=== PATIENT | female | born 1945 | race Caucasian/White ===

== ENCOUNTER → 2022-09-14 10:01 | Outpatient (CLI) | payer MEDICARE, OTHER, SELFPAY ==
--- NOTE | 2022-09-14 10:03 | CA_ITS ---
FINAL REPORT TECHNIQUE: Color Doppler, duplex Doppler and morgan scale sonography of the bilateral neck arterial vasculature was performed. Velocities were measured in the carotid arteries. Stenosis evaluation based on the validated velocity criteria. CLINICAL HISTORY: right bruit, exsmoker, HTN FINDINGS: The peak systolic velocity of the right common carotid artery is 147 cm/s. The peak systolic velocity of the right internal carotid artery is 138 cm/s and end diastolic velocity 32 cm/s. The ICA/CCA ratio is 0.94. A moderate amount of plaque is present at the carotid bifurcation. The right external carotid artery is patent. The right vertebral artery is patent with antegrade flow. The peak systolic velocity of the left common carotid artery is 90 cm/s. The peak systolic velocity of the left internal carotid artery is 93 cm/s and end diastolic velocity 23 cm/s. The ICA/CCA ratio is 1.0. A moderate amount of plaque is present at the carotid bifurcation. There is a moderate amount of plaque at the proximal left common carotid artery. The left external carotid artery is patent.The left vertebral artery is patent with antegrade flow. IMPRESSION: No elevated velocity. Moderate plaque in the proximal left common carotid artery and moderate plaque at the carotid bifurcation bilaterally. Bilateral patent vertebral arteries with antegrade flow. If indicated, CTA or MRA could further evaluate. Reviewed, Interpreted and Dictated by Esteban Washburn MD Transcribed by Hayley Galdamez Authenticated and [facility]
== END ==
PROVIDERS: PCP Family Medicine; Visit Provider Nurse Practitioner Family
DX: R09.89 Other specified symptoms and signs involving the circulatory and respiratory systems (principal)
CPT/HCPCS: 93880

== ENCOUNTER → 2023-02-14 17:21 | Outpatient (CLI) | payer MEDICARE, OTHER, SELFPAY | PROVIDERS: PCP Family Medicine; Visit Provider Family Medicine | DX: R05.9 Cough, unspecified (principal) | CPT/HCPCS: C9803; U0003; U0005 ==

== ENCOUNTER → 2023-05-16 23:24 | Outpatient (CLI) | payer MEDICARE, OTHER, SELFPAY ==
[2023-05-16 17:01] LABS: Basophils # 0.1 K/mm3 (0-0.2); Eosinophils # 0.2 K/mm3 (0.0-0.4); Eosinophils % 2.9 % (0.1-12.0); Hematocrit 47.9 % (37.0-47.0); Hemoglobin 15.1 g/dL (12.2-16.2); Lymphocytes % 28.4 % (10-50); Mean Corpuscular HGB Conc 31.6 g/dL (31.8-35.4); Mean Corpuscular Hemoglobin 30.5 pg (27.0-31.2); Mean Corpuscular Volume 96.6 fl (81-99); Monocytes # 0.4 K/mm3 (0.1-1.0); Monocytes % 5.2 % (1.7-9.3); Neutrophils # 4.4 K/mm3 (1.8-7.8); Neutrophils % 62.5 % (37.0-80.0); Platelet Count 224 K/mm3 (142-424); Red Blood Count 4.96 M/mm3 (4.20-5.40)
[2023-05-16 17:56] LABS: Alanine Aminotransferase 30 U/L (12-78); Albumin Level 4.7 g/dl (3.5-5.0); Alkaline Phosphatase 159 U/L (38-126); Anion Gap 13.3 mEq/L (5-15); Aspartate Amino Transferase 37 U/L (14-36); Bilirubin,Total 0.7 mg/dl (0.2-1.3); Blood Urea Nitrogen 16 mg/dl (7-17); Calcium 9.9 mg/dl (8.4-10.2); Carbon Dioxide 27 mmol/L (22.0-30.0); Chloride 105 mmol/L (98-107); Estimated Glomerular Filt Rate 60 ml/min (>60); GFR (African American) 73 ML/MIN (>60); Globulin 2.4 g/dL (1.3-3.2); Glucose 97 mg/dl (74-100); Potassium 4.3 mmoL/L (3.5-5.1); Sodium 141 mmol/L (136-145); Total Protein,Serum 7.1 g/dl (6.3-8.2)
[2023-05-16 18:11] LABS: T4 (Thyroxine) 8.1 ug/dl (5.53-11.0)
[2023-05-16 18:24] LABS: Thyroid Stimulating Hormone 1.51 uIU/mL (0.465-4.68)
== END ==
PROVIDERS: PCP Family Medicine; Visit Provider Family Medicine
DX: I10 Essential (primary) hypertension (principal); M79.606 Pain in leg, unspecified; Z79.899 Other long term (current) drug therapy
CPT/HCPCS: 80053; 84436; 84443; 85025

== ENCOUNTER → 2023-05-25 14:34 | Outpatient (CLI) | payer MEDICARE, OTHER, SELFPAY ==
--- NOTE | 2023-05-25 14:47 | US_ITS ---
FINAL REPORT TECHNIQUE: Sonographic images of the thyroid gland were obtained in the longitudinal and transverse planes. CLINICAL HISTORY: thyroid nodule FINDINGS: The right lobe measures 1.7 x 4.6 x 1.0 cm. There are several nodules mixed cystic and solid measuring up to 1.5 cm. There is an isoechoic, 8 mm nodule and several smaller nodules. The left lobe measures 1.3 x 4.0 x 0.8 cm. There are several tiny colloid cysts. No solid nodule is identified. The isthmus measures 3 mm. This is normal. IMPRESSION: Several TI-RADS 3 nodules. Recommend follow-up. Reviewed, Interpreted and Dictated by Wendy Hughes MD Transcribed by Nae Nam Authenticated and [facility] [place] [place]
== END ==
PROVIDERS: PCP Family Medicine; Visit Provider Family Medicine
DX: E04.1 Nontoxic single thyroid nodule (principal)
CPT/HCPCS: 76536

== ENCOUNTER 2023-12-21 20:13 | Outpatient (CLI) | payer MEDICARE, OTHER, SELFPAY ==
[2023-12-21 16:49] LABS: Basophils # 0.1 K/mm3 (0-0.2); Basophils % 0.9 % (0.1-2.0); Eosinophils # 0.2 K/mm3 (0.0-0.4); Eosinophils % 2.4 % (0.1-12.0); Hematocrit 44.7 % (37.0-47.0); Hemoglobin 15.2 g/dL (12.2-16.2); Lymphocytes # 1.8 K/mm3 (0.7-4.5); Lymphocytes % 27.8 % (10-50); Mean Corpuscular Hemoglobin 32.1 pg (27.0-31.2); Mean Corpuscular Volume 94.2 fl (81-99); Mean Platelet Volume 8.2 fl (7.4-10.4); Monocytes # 0.4 K/mm3 (0.1-1.0); Monocytes % 6.7 % (1.7-9.3); Neutrophils % 62.3 % (37.0-80.0); Platelet Count 218 K/mm3 (142-424); Red Blood Count 4.74 M/mm3 (4.20-5.40); Red Cell Distribution Width 13.5 % (11.5-17.5); White Blood Count 6.4 K/mm3 (4.8-10.8)
[2023-12-21 16:58] LABS: Alanine Aminotransferase 21 U/L (12-78); Albumin Level 4.3 g/dl (3.5-5.0); Albumin/Globulin Ratio 1.9 (1.1-1.8); Alkaline Phosphatase 189 U/L (38-126); Anion Gap 11.2 mEq/L (5-15); Aspartate Amino Transferase 29 U/L (14-36); Bilirubin,Total 0.5 mg/dl (0.2-1.3); Blood Urea Nitrogen 18 mg/dl (7-17); Calcium 9.9 mg/dl (8.4-10.2); Carbon Dioxide 31 mmol/L (22.0-30.0); Chloride 103 mmol/L (98-107); Chol/HDL Ratio 2.7 (1-3.5); Cholesterol 157 mg/dl (140-200); Estimated Glomerular Filt Rate 60 ml/min (>60); GFR (African American) 73 ML/MIN (>60); Globulin 2.3 g/dL (1.3-3.2); Glucose 100 mg/dl (74-100); HDL Cholesterol 59 mg/dl (40-60); Potassium 4.2 mmoL/L (3.5-5.1); Sodium 141 mmol/L (136-145); Total Protein,Serum 6.6 g/dl (6.3-8.2); Triglycerides 104 mg/dl (30-150); VLDL Cholesterol 21 mg/dL (0-40)
[2023-12-21 17:09] LABS: Direct LDL Cholesterol 72.46 mg/dL (100-129)
[2023-12-21 17:28] LABS: Thyroid Stimulating Hormone 1.34 uIU/mL (0.465-4.68)
== END 2023-12-21 23:59 ==
PROVIDERS: PCP Nurse Practitioner Family; Visit Provider Nurse Practitioner Family
DX: E78.5 Hyperlipidemia, unspecified (principal); I10 Essential (primary) hypertension; Z79.899 Other long term (current) drug therapy
CPT/HCPCS: 80053; 80061; 84443; 85025

== ENCOUNTER 2024-06-05 13:03 | Outpatient (CLI) | payer MEDICARE, OTHER, SELFPAY ==
--- NOTE | 2024-06-05 13:30 | PC.NURSE ---
PT UNABLE TO DO DLCO ON PFT, ATTEMPTED MULTIPLE TIMES
[2024-06-05 14:20] VITALS: PULSE 63
[2024-06-05] MEDS: ALBUTEROL 0.083% 2.5 MG/3 ML NEB IH (14:20)
--- NOTE | 2024-06-05 14:39 | CT_ITS ---
FINAL REPORT TECHNIQUE: Axial images were obtained from the lung apex to the mid abdomen by computed tomography. Coronal reformatted images were obtained. This study was performed with techniques to keep radiation doses as low as reasonably achievable, (ALARA). Individualized dose reduction techniques using automated exposure control or adjustment of mA and/or kV according to the patient''s size were employed. CLINICAL HISTORY: lung nodules COMPARISON: None FINDINGS: There is no axillary adenopathy. There are few small scattered mediastinal lymph nodes. Dense coronary artery calcifications are seen. Heart size is normal. There is no pericardial or pleural effusion. There are advanced changes of centrilobular emphysema. Biapical pleural-parenchymal scarring is noted. There are no discrete nodules seen. Limited images of the upper abdomen are unremarkable. IMPRESSION: Centrilobular emphysema. Changes of chronic scarring, particularly at the lung apices. Reviewed, Interpreted and Dictated by Esteban Washburn MD Transcribed by Yamel Aguilar Authenticated and [facility]
== END 2024-06-05 23:59 | disposition home or self-care (01) ==
LOC: RT 13:03
PROVIDERS: PCP Family Medicine; Visit Provider Internal Medicine Pulmonary Disease
DX: R91.8 Other nonspecific abnormal finding of lung field (principal); R06.09 Other forms of dyspnea
CPT/HCPCS: 71250; 94060; 94618; 94640; 94726; 94729; J7613

== ENCOUNTER 2025-05-24 13:45 | Outpatient (CLI) | payer MEDICARE, OTHER, SELFPAY ==
--- OUTSIDE RECORDS SUMMARY | 2025-05-27 10:33 | XMS_ITS | Clinical Summary ---
Author Organization [facility] Address [address] [place] [address] Care Team Providers Care Banquet Manager Name Role Phone Praful Anaya MD Primary Care Provider [phone] Allergies Active Allergy Reactions Criticality Noted Date Comments Sulfa Antibiotics Other (See Comments) 03/17/20 17 Hands and feet became red and itched Medications clopidogrel (PLAVIX) 75 MG tablet Take 1 tablet by mouth Daily. Active metoprolol tartrate (LOPRESSOR) 50 MG tablet Take 1.5 tablets by mouth 2 (Two) Times a Day. Active aspirin EC 325 MG tablet Take 1 tablet by mouth Daily. Active vitamin D (ERGOCALCIFEROL ) 31627 UNITS capsule capsule Take 1 capsule by mouth Every 30 (Thirty) Days. 5 7 Active albuterol (2.5 MG/3ML) 0.083% nebulizer solution 3 mL, albuterol (5 MG/ML) 0.5% nebulizer solution 0.5 mL Inhale Every 4 (Four) Hours. Active atorvastatin (LIPITOR) 20 MG tablet Take 1 tablet by mouth Daily. Active amLODIPine (NORVASC) 5 MG tablet Take 2 tablets by mouth Every Night. Active Cholecalciferol (VITAMIN D-3 PO) Take 1 tablet by mouth Daily. Active budesonide-form oterol (SYMBICORT) 160-4.5 MCG/ACT inhaler Inhale 2 puffs 2 (Two) Times a Day. 1 inhaler 12 7 Active montelukast (SINGULAIR) 10 MG tablet TAKE 1 TABLET 1 TIME EACH DAY 3 Active Ventolin HFA 108 (90 Base) MCG/ACT inhaler INHALE 2 PUFFS EVERY 6 HOURS NEEDED FOR SHORTNESS OF BREATH 3 Active famotidine (PEPCID) 40 MG tablet TAKE 1 TABLET 2 TIMES EACH DAY 3 Active Active Problems Problem Noted Date Diagnosed Date Lung nodules 02/28/2023 COPD (chronic obstructive pulmonary disease) Bilateral carotid artery stenosis 08/30/2017 Stenosis of left carotid artery 08/18/2017 Overview (08/18/2017): Added automatically from request for surgery [id number] Immunizations Immunization Administration Dates Next Due COVID-19 (MODERNA) 1st,2nd,3rd Dose Monovalent 0 01/29/2021,01/01/2021 COVID-19 (MODERNA) Monovalent Original Booster 1 12/16/2020 Flu Vaccine Quad PF >36MO 08/31/2017 Fluzone (or Fluarix & Flulaval for VFC) >6mos Fluzone High-Dose 65+yrs 09/03/2022 Influenza Injectable Mdck Pf Quad 08/22/2020,11/2017 Family History Medical History Relation Name Comments Hypertension Father Kidney cancer Father Heart attack Mother Relation Name Status Comments Father Mother Social History Tobacco Use Types Packs/Day Years Used Date Smoking Tobacco: Former Cigarettes 1 30 1 2010 Smokeless Tobacco: Never Tobacco Cessation:Counseling Given: Not Answered Alcohol Use Standard Drinks/Week Comments No 0 (1 standard drink = 0.6 oz pur e alcohol) Abuse Screen Answer Date Recorded Unsafe at Home or Work/School Not on file Feels Threatened by Someone? Not on file 09/2023 Does Anyone Keep You from Co ntacting Others or Doint Things Outside the Home? Not on file 08/17/2023 Physical Sign of Abuse Present Not on file 1 Housing Stability Answer Date Recorded Current Living Arrangements Not on file 08/07 Potentially Unsafe Housing Conditions Not on anil e 08/17/2023 Family and Community Support Answer Kong e Recorded Help with Day-to-Day Activities Not on file 08/17/2023 Lonely or Isolated Not on file 08/17/2023 Employment Answer Date Recorded Do you want help finding or keeping work or a gurdeep b? Not on file 08/17/2023 Disabilities Answer Date Recorded Concentrating, Remembering, or Making Decisions Difficulty Not on file 08/17/2023 Doing Errands Independently Difficulty Not on fi le 08/17/2023 Education Answer Date Recorded Help with school or training? 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 Not on file Not on anil e Last Filed Vital Signs Vital Sign Reading Time Taken Comments Blood Pressure 122/66 03/14/2023 12:42 PM EDT Pulse 65 03/14/2023 12:42 PM EDT Temperature 36.1 C (97 F) 03/14/2023 12:42 PM EDT Respiratory Rate 16 03/14/2023 12:4 2 PM EDT Oxygen Saturation 93% 03/14/2023 12: 42 PM EDT room air at rest Inhaled Oxygen Concentration - - Weight 68 kg (150 lb) 03/14/2023 12:42 PM EDT Height 165.1 cm (5' 5 ) 03/14/2023 12:4 2 PM EDT Body Mass Index 24.96 03/14/2023 12:42 PM EDT Plan of Treatment Health Maintenance Due Date Last Done Comments DXA SCAN 1945 Pneumococcal Vaccine 50+ (1 of 2 - PCV) 1962 TDAP/TD VACCINES (1 - Tdap) 1962 COLOGUARD 1988 COLON CANCER SCREENING 5 YEA R SIGMOIDOSCOPY 1988 COLONOSCOPY [address]CER SCREENING 1988 CT COLONOGRAPHY 1988 FECAL OCCULT BLOOD TEST 1988 FIT Testing (1 year) 1988 ZOSTER VACCINE (1 of 2) 1993 ANNUAL WELLNESS VISIT 03/17/2017 RSV Vaccine - Adults (1 - 1- dose 75+ series) 2018 COVID-19 Vaccine (4 - 2023-2 5 season) 2024 10/15/2021, 01/29/2021, 01/01/2021 INFLUENZA VACCINE 08/07/2025 09/03/2022, , 08/07/2018, Additional history exists Medical Devices Implanted Type Area Vocational Training Director Device Identifier Shelf Expiration Date Model / Serial / Lot Landry Mistry 1x6cm - [id number] Implanted:Qty: 1 on 08/30/2017 by Ramin Velazco MD at [facility] Implant Left: Carotid SYNOVIS 02/28/2022 [id number] / / [id number] Insurance [employer] [place] [id number] Advance Directives * Full Code (Latest Code Status on File) Date Activated Date Inactivated Comments 08/30/2017 11:14 AM 08/31/2017 5:55 PM Care Teams Banquet Manager Relationship Specialty Start Date End Date Praful Anaya MD [address] [facility] [address] [place] [address] PCP - General Family Medicine 03/18/17
--- OUTSIDE RECORDS SUMMARY | 2025-05-27 10:33 | XMS_ITS | Clinical Summary ---
Author Organization [facility] Address [address] [id number] Care Team Providers Care Immunohematologist Name Role Phone Kavon Oliver MD Primary Care Provider Dionna vailable Allergies Active Allergy Reactions Criticality Noted Date Comments Sulfa Drugs Itching,Other - plea se document in the comment field,Unknown - Patient states they do not know rxn details Medium 07/28/2011 Hands and feet became red and itched Medications Symbicort 160-4.5 MCG/ACT inhaler INHALE 2 PUFFS 2 TIMES EACH DAY 01/10/2023 Active atorvastatin (Lipitor) 20 MG tablet TAKE 1 TABLET 1 TIME EACH DAY 07/09/2023 Active famotidine (Pepcid) 40 MG tablet TAKE 1 TABLET 2 TIMES EACH DAY 07/11/2023 Active montelukast (Singulair) 10 MG tablet TAKE 1 TABLET 1 TIME EACH DAY 07/09/2023 Active clopidogrel (Plavix) 75 MG tablet TAKE 1 TABLET 1 TIME EACH DAY 07/09/2023 Active amLODIPine (Norvasc) 10 MG tablet TAKE 1 TABLET 1 TIME EACH DAY 07/09/2023 Active metoprolol tartrate (Lopressor) 25 MG tablet TAKE 1 AND 1/2 TABLET 2 TIMES EACH DAY 07/09/2023 Active ipratropium-albu terol (Duo-Neb) 0.5-2.5 mg/3 mL nebulizer solution 07/15/2023 Active Family History Medical History Relation Name Comments Hypertension Father Other cancer Father Relation Name Status Comments Father Social History Tobacco Use Types Packs/Day Years Used Date Smoking Tobacco: Former Cigarettes Q uit: 2008 Smokeless Tobacco: Never Tobacco Cessation:Counseling Given: Not Answered Alcohol Use Standard Drinks/Week Comments Not Currently 0 (1 standard drink = 0.6 oz pur e alcohol) Comments Unknown Sex and Gender Information Value Date Recorded Sex Assigned at Not on file Legal Sex Female 8:37 PM EDT Gender Identity Not on file Sexual Orientation Not on file Last Filed Vital Signs Vital Sign Reading Time Taken Comments Blood Pressure 128/72 07/28/2023 9:48 AM EDT Pulse 78 07/28/2023 9:48 AM EDT Temperature - - Respiratory Rate - - Oxygen Saturation - - Inhaled Oxygen Concentration - - Weight 69.5 kg (153 lb 3.5 oz) 07/28/2023 9:48 A M EDT Height 160 cm (5' 3 ) 07/28/2023 9:48 AM EDT Body Mass Index 27.14 07/28/2023 9:48 AM EDT Plan of Treatment Health Maintenance Due Date Last Done Comments [facility]-Bone Density Scan 1943 [facility]-Depression Screening 1943 [facility]-/Child/Adol SDOH Screenings 1943 [facility]- SDOH Screenings 1961 [facility]-Adult SDOH Screenings 1961 [facility]-DTaP,Tdap,and Td Vaccines (1 - Tdap) 1962 [facility]-Pneumococcal Vaccine: 50+ Years (1 of 1 - PCV) 1993 [facility]-Zoster Vaccines (1 of 2) 1993 [facility]-RSV Vaccine: 60+ Years or (1 - 1-dose 75+ series) 2018 [id number] Vaccine (4 - season) 2024 10/15/2021, 01/29/2021, 01/01/2021 [facility]-Influenza Vaccine (#1) 07/08/202509/03, 08/22/2020, 08/07/2018, Additional history exists HPV Vaccines Aged Out No longer eligi ble based on patient's age to complete this topic [facility]-HIB Vaccines Aged Out No longer e ligible based on patient's age to complete this topic [facility]-Hepatitis A Vaccines Aged Out No longer eligible based on patient's age to complete this topic [facility]-IPV Vaccines Aged Out No longer e ligible based on patient's age to complete this topic [facility]-Rotavirus Vaccines Aged Out No lo nger eligible based on patient's age to complete this topic Insurance Jean FORREST NISHA ROSIBEL RIMMA [id number] MEDICARE Care Teams Immunohematologist Relationship Specialty Start Date End Date Kavon Oliver MD PCP - General Family Medicine 07/28/23
== END 2025-05-24 23:59 | disposition home or self-care (01) ==
LOC: LAB.DROPOF 05-27 10:23
PROVIDERS: PCP Family Medicine; Visit Provider Family Medicine
DX: R39.9 Unspecified symptoms and signs involving the genitourinary system (principal)
CPT/HCPCS: 87086